=== PATIENT | male | born 1965 | race Caucasian/White ===

== ENCOUNTER 2023-06-23 13:31 | Emergency (ER) | payer OTHER | END 2023-06-23 16:15 | disposition home or self-care (01) | LOC: JP.ED 13:31 | DX: S40.012A Contusion of left shoulder, initial encounter (principal); S40.812A Abrasion of left upper arm, initial encounter; I10 Essential (primary) hypertension; Z88.5 Allergy status to narcotic agent; Z79.899 Other long term (current) drug therapy; V29.408A Other motorcycle driver injured in collision with unspecified motor vehicles in traffic accident, initial encounter; Y92.410 Unspecified street and highway as the place of occurrence of the external cause | CPT/HCPCS: 73030-26-LT; 73030-LT; 99282; 99284 ==